=== PATIENT | male | born 1955 | race African-American/Black ===

== ENCOUNTER 2023-06-21 20:42 | Inpatient (IN) | payer OTHER ==
[2023-06-21] MEDS ORDERED: FUROSEMIDE 40 MG/4 ML INJECTABLE VIAL IVPUSH ONE (21:15)
[2023-06-21 21:49] LABS: BASO % 0.7 % (0-2.0); EOS % 0.2 % (0-4.5); HEMATOCRIT 32.9 % (35.4-49); HEMOGLOBIN 10.1 GM/dL (11.7-16.9); MCH 26.9 pg (25.7-33.7); MCHC 30.6 g/dl (32.0-35.9); MEAN CELL VOLUME 87.8 fl (80-96); MEAN PLT VOLUME 7.2 fl (7.5-11.1); MONO % 4.2 % (3.8-10.2); NEUT % 87.9 % (42.8-82.8); PLATELET COUNT 302 10^3/uL (134-434); RBC 3.74 M/mm3 (4.00-5.60); RDW 19.5 % (11.9-15.9); WHITE BLOOD COUNT 11.5 K/mm3 (4.0-10.0)
[2023-06-21] MEDS ORDERED: FUROSEMIDE 40 MG/4 ML INJECTABLE VIAL ONE (21:49)
[2023-06-21 21:50] LABS: VENOUS BASE EXCESS -3.5 mmol/L (-2-2); VENOUS O2 SATURATION 29.9 % (70-80)
[2023-06-21 21:53] LABS: VENOUS PCO2 88.8 mmHg (38-52); VENOUS PH 7.11 (7.310-7.410)
[2023-06-21 21:56] LABS: INR 1.71 (0.83-1.09); PROTHROMBIN TIME (PATIENT) 19.7 SEC (9.7-13.0)
[2023-06-21 21:58] LABS: ACTIVATED PTT 32.9 SECONDS (25.2-36.5)
[2023-06-21 22:03] LABS: ARTERIAL BLD GAS O2 SATURATION 90.7 % (95-98); ARTERIAL BLOOD GAS BASE EXCESS -4.3 mmol/L (-2-2)
[2023-06-21 22:09] LABS: ALLENS TEST POSITIVE
[2023-06-21 22:10] LABS: CHLORIDE 103 mmol/L (98-107); POTASSIUM 5.2 mmol/L (3.5-5.1); SODIUM 137 mmol/L (136-145)
[2023-06-21 22:12] LABS: ANION GAP 6 mmol/L (4-13); BLOOD UREA NITROGEN 64.4 mg/dL (7-18); CALCIUM 8.5 mg/dL (8.5-10.1); CO2 28 mmol/L (21-32); GLUCOSE,RANDOM 120 mg/dL (74-106)
[2023-06-21 22:13] LABS: ALBUMIN 2.4 g/dl (3.4-5.0)
[2023-06-21 22:15] LABS: ARTERIAL BLOOD GAS pH 7.173 (7.350-7.450)
[2023-06-21 22:17] LABS: BILIRUBIN,TOTAL 0.4 mg/dL (0.2-1); TOT PROT 8.2 g/dl (6.4-8.2)
[2023-06-21 22:18] LABS: ALK PHOS 150 U/L (45-117)
[2023-06-21 23:11] LABS: SGOT/AST 2235 U/L (15-37); SGPT/ALT 1715 U/L (13-61)
[2023-06-22 00:21] LABS: ARTERIAL BLD GAS O2 SATURATION 92.9 % (95-98); ARTERIAL BLOOD GAS BASE EXCESS -3.1 mmol/L (-2-2); ARTERIAL BLOOD GAS PO2 81.2 mmHg (80-100)
[2023-06-22 00:23] LABS: ARTERIAL BLOOD GAS pH 7.196 (7.350-7.450)
[2023-06-22 00:25] LABS: ALLENS TEST POSITIVE
[2023-06-22] MEDS ORDERED: FUROSEMIDE 40 MG/4 ML INJECTABLE VIAL IVPUSH ONE ×2 (02:58→18:09)
[2023-06-22] MEDS: MUPIROCIN 2% TOPICAL OINTMENT FOR DECOLONIZATION NS SCH ×3 (03:28→22:42)
[2023-06-22] MEDS ORDERED: CEFTRIAXONE 1 GM in DEXTROSE 5%-WATER - 50 ML IVPB ONE (06:07)
[2023-06-22 06:24] LABS: ARTERIAL BLD GAS O2 SATURATION 97.4 % (95-98); ARTERIAL BLOOD GAS BASE EXCESS -2.8 mmol/L (-2-2); ARTERIAL BLOOD GAS PO2 117.6 mmHg (80-100); ARTERIAL BLOOD GAS pH 7.221 (7.350-7.450)
[2023-06-22 06:25] LABS: VENT MODE S/T; VENT RATE 18
[2023-06-22 08:06] LABS: BASO % 0.7 % (0-2.0); EOS % 0.3 % (0-4.5); HEMATOCRIT 31.8 % (35.4-49); HEMOGLOBIN 9.7 GM/dL (11.7-16.9); LYMPH % 13.3 % (8-40); MCH 26.5 pg (25.7-33.7); MCHC 30.5 g/dl (32.0-35.9); MEAN CELL VOLUME 86.9 fl (80-96); MEAN PLT VOLUME 7.8 fl (7.5-11.1); MONO % 6.6 % (3.8-10.2); NEUT % 79.1 % (42.8-82.8); PLATELET COUNT 256 10^3/uL (134-434); RBC 3.66 M/mm3 (4.00-5.60); RDW 19.6 % (11.9-15.9); WHITE BLOOD COUNT 10.3 K/mm3 (4.0-10.0)
[2023-06-22 08:08] LABS: POTASSIUM 5.9 mmol/L (3.5-5.1)
[2023-06-22 08:11] LABS: ALBUMIN 2.1 g/dl (3.4-5.0); CALCIUM 8.4 mg/dL (8.5-10.1)
[2023-06-22 08:12] LABS: BLOOD UREA NITROGEN 68.8 mg/dL (7-18); MAGNESIUM 2.7 mg/dL (1.8-2.4)
[2023-06-22 08:14] LABS: CREATININE 5.3 mg/dL (0.55-1.3)
[2023-06-22 08:16] LABS: BILIRUBIN,TOTAL 0.4 mg/dL (0.2-1); TOT PROT 7.4 g/dl (6.4-8.2)
[2023-06-22] MEDS ORDERED: ASPIRIN 325 MG TABLET PO SCH (10:00)
[2023-06-22] MEDS: OXYBUTYNIN CHLORIDE 5 MG TABLET PO SCH (10:29)
[2023-06-22] MEDS: CEFTRIAXONE 1 GM in DEXTROSE 5%-WATER - 50 ML IVPB SCH (10:30)
[2023-06-22] MEDS: HEPARIN NA (PORCINE) 5,000 UNITS/ML 1ML VIAL SQ SCH ×2 (10:32→22:42)
[2023-06-22] MEDS ORDERED: DEXTROSE 50%-WATER 25 GM/50 ML DISP.SYRIN IVPUSH ONE (13:46)
[2023-06-22] MEDS ORDERED: FUROSEMIDE 40 MG/4 ML INJECTABLE VIAL IVPUSH SCH (14:00)
[2023-06-22 14:40] LABS: EPI CELLS 2 /uL (0-25.1); HYALINE CASTS 1 /uL (0-3.1); URINE APPEARANCE TURBID; URINE BACTERIA 55 /uL (0-1359); URINE BILIRUBIN NEGATIVE (NEGATIVE); URINE COLOR DK YELLOW; URINE GLUCOSE (UA) NEGATIVE (NEGATIVE); URINE KETONE TRACE (NEGATIVE); URINE LEUK ESTERASE 2+ (NEGATIVE); URINE NITRITE NEGATIVE (NEGATIVE); URINE PROTEIN 3+ (NEGATIVE); URINE WBC 138 /uL (0-25.8)
[2023-06-22] MEDS: FUROSEMIDE 40 MG/4 ML INJECTABLE VIAL IVPUSH SCH (14:51)
[2023-06-22 14:59] LABS: URINE RBC 565.3 /uL (0-23.9); YEAST NONE SEEN (NEGATIVE)
[2023-06-22] MEDS: SODIUM ZIRCONIUM CYCLOSILICATE (LOKELMA) 5 GM PACKET PO SCH ×2 (20:18→22:43)
[2023-06-22] MEDS: CHLORHEXIDINE GLUCONATE 4% CLEANSER FOR DECOLONIZATION TP SCH (22:43)
[2023-06-23] MEDS: OXYBUTYNIN CHLORIDE 5 MG TABLET PO SCH ×3 (03:22→21:56)
[2023-06-23] MEDS: FUROSEMIDE 40 MG/4 ML INJECTABLE VIAL IVPUSH SCH ×2 (05:20→14:57)
[2023-06-23 07:36] LABS: BASO % 0.5 % (0-2.0); EOS % 0.7 % (0-4.5); HEMATOCRIT 31.7 % (35.4-49); HEMOGLOBIN 9.9 GM/dL (11.7-16.9); LYMPH % 9.4 % (8-40); MCH 26.8 pg (25.7-33.7); MCHC 31.3 g/dl (32.0-35.9); MEAN CELL VOLUME 85.7 fl (80-96); MEAN PLT VOLUME 7.8 fl (7.5-11.1); MONO % 4.4 % (3.8-10.2); PLATELET COUNT 307 10^3/uL (134-434); RDW 19.6 % (11.9-15.9); WHITE BLOOD COUNT 10.6 K/mm3 (4.0-10.0)
[2023-06-23 07:52] LABS: POTASSIUM 5.8 mmol/L (3.5-5.1)
[2023-06-23 08:30] LABS: ALBUMIN 2.2 g/dl (3.4-5.0); CALCIUM 8.6 mg/dL (8.5-10.1)
[2023-06-23 08:31] LABS: MAGNESIUM 2.8 mg/dL (1.8-2.4)
[2023-06-23 08:33] LABS: PHOSPHOROUS 6.5 mg/dL (2.5-4.9)
[2023-06-23 08:34] LABS: TOT PROT 7.5 g/dl (6.4-8.2)
[2023-06-23 08:35] LABS: BILIRUBIN,TOTAL 0.3 mg/dL (0.2-1)
[2023-06-23] MEDS ORDERED: SODIUM ZIRCONIUM CYCLOSILICATE (LOKELMA) 5 GM PACKET PO ONE (09:10)
[2023-06-23] MEDS: HEPARIN NA (PORCINE) 5,000 UNITS/ML 1ML VIAL SQ SCH ×2 (09:42→21:26)
[2023-06-23] MEDS: PANTOPRAZOLE 40 MG TABLET PO SCH (09:42)
[2023-06-23] MEDS: CEFTRIAXONE 1 GM in DEXTROSE 5%-WATER - 50 ML IVPB SCH (09:43)
[2023-06-23] MEDS: MUPIROCIN 2% TOPICAL OINTMENT FOR DECOLONIZATION NS SCH ×2 (09:49→21:27)
[2023-06-23 10:01] LABS: INR 1.46 (0.83-1.09); PROTHROMBIN TIME (PATIENT) 16.9 SEC (9.7-13.0)
[2023-06-23] MEDS ORDERED: PHENAZOPYRIDINE HCL 100 MG TABLET (FP) PO ONE (11:00)
[2023-06-23] MEDS ORDERED: MIDAZOLAM HCL 2 MG/2 ML SINGLE DOSE VIAL IVPUSH ONE (11:38)
[2023-06-23] MEDS ORDERED: FENTANYL CITRATE/PF 50 MCG/ML VIAL IVPUSH ONE (11:38)
[2023-06-23] MEDS ORDERED: MIDAZOLAM HCL 2 MG/2 ML SINGLE DOSE VIAL ONE (11:43)
[2023-06-23] MEDS ORDERED: HEPARIN NA (PORCINE) 5,000 UNITS/ML 1ML VIAL IVPUSH ONE (17:00)
[2023-06-23] MEDS: ALBUMIN HUMAN 25% 12.5 GM/50 ML VIAL IV SCH ×3 (17:36→18:18)
[2023-06-23] MEDS: CHLORHEXIDINE GLUCONATE 4% CLEANSER FOR DECOLONIZATION TP SCH (21:27)
[2023-06-24] MEDS: FUROSEMIDE 40 MG/4 ML INJECTABLE VIAL IVPUSH SCH ×2 (05:06→16:06)
[2023-06-24 07:33] LABS: HEMATOCRIT 29.5 % (35.4-49); MCH 26.2 pg (25.7-33.7); MCHC 30.3 g/dl (32.0-35.9); MEAN CELL VOLUME 86.4 fl (80-96); MEAN PLT VOLUME 7.8 fl (7.5-11.1); PLATELET COUNT 257 10^3/uL (134-434); RBC 3.42 M/mm3 (4.00-5.60); RDW 19.3 % (11.9-15.9)
[2023-06-24 07:34] LABS: WHITE BLOOD COUNT 8.9 K/mm3 (4.0-10.0)
[2023-06-24 07:46] LABS: CALCIUM 8.2 mg/dL (8.5-10.1)
[2023-06-24 07:47] LABS: ALBUMIN 2.2 g/dl (3.4-5.0); BLOOD UREA NITROGEN 69.9 mg/dL (7-18); MAGNESIUM 2.6 mg/dL (1.8-2.4)
[2023-06-24 07:49] LABS: CREATININE 5.5 mg/dL (0.55-1.3)
[2023-06-24 07:51] LABS: BILIRUBIN,TOTAL 0.4 mg/dL (0.2-1)
[2023-06-24 09:04] LABS: ANISOCYTOSIS 0; MACROCYTOSIS 0
[2023-06-24 09:21] LABS: PLATELET ESTIMATE ADEQUATE
[2023-06-24] MEDS: OXYBUTYNIN CHLORIDE 5 MG TABLET PO SCH ×2 (09:52→23:16)
[2023-06-24] MEDS: CEFTRIAXONE 1 GM in DEXTROSE 5%-WATER - 50 ML IVPB SCH (09:52)
[2023-06-24] MEDS: HEPARIN NA (PORCINE) 5,000 UNITS/ML 1ML VIAL SQ SCH ×2 (09:53→23:15)
[2023-06-24] MEDS: PANTOPRAZOLE 40 MG TABLET PO SCH (09:53)
[2023-06-24] MEDS: MUPIROCIN 2% TOPICAL OINTMENT FOR DECOLONIZATION NS SCH (09:54)
[2023-06-24] MEDS ORDERED: HEPARIN NA (PORCINE) 5,000 UNITS/ML 1ML VIAL IVPUSH ONE (10:38)
[2023-06-24] MEDS ORDERED: SODIUM CHLORIDE 250 ML IV PRN ×3 (10:38→19:51)
[2023-06-24] MEDS: ALBUMIN HUMAN 25% 12.5 GM/50 ML VIAL IV SCH ×4 (11:50→13:30)
[2023-06-24 21:42] LABS: ANTIGLOMERULAR BASEMENT MEN.AB <0.2 units (0.0-0.9)
[2023-06-24] MEDS ORDERED: CHLORHEXIDINE GLUCONATE 4% CLEANSER FOR DECOLONIZATION TP SCH (22:00)
[2023-06-24] MEDS ORDERED: MUPIROCIN 2% TOPICAL OINTMENT FOR DECOLONIZATION NS SCH (22:00)
[2023-06-24] MEDS ORDERED: ACETAMINOPHEN 325 MG TABLET (FP) PO ONE (22:41)
[2023-06-25] MEDS: FUROSEMIDE 40 MG/4 ML INJECTABLE VIAL IVPUSH SCH ×2 (05:24→17:39)
[2023-06-25 07:23] LABS: BASO % 0.9 % (0-2.0); EOS % 2.1 % (0-4.5); HEMATOCRIT 29.9 % (35.4-49); HEMOGLOBIN 9.2 GM/dL (11.7-16.9); LYMPH % 13.7 % (8-40); MCH 26.7 pg (25.7-33.7); MCHC 30.6 g/dl (32.0-35.9); MEAN CELL VOLUME 87.3 fl (80-96); MEAN PLT VOLUME 7.9 fl (7.5-11.1); MONO % 8.3 % (3.8-10.2); PLATELET COUNT 256 10^3/uL (134-434); RBC 3.43 M/mm3 (4.00-5.60); RDW 19.4 % (11.9-15.9); WHITE BLOOD COUNT 7.1 K/mm3 (4.0-10.0)
[2023-06-25 07:27] LABS: POTASSIUM 4.8 mmol/L (3.5-5.1)
[2023-06-25 07:42] LABS: CALCIUM 8.3 mg/dL (8.5-10.1)
[2023-06-25 07:43] LABS: ALBUMIN 2.4 g/dl (3.4-5.0); MAGNESIUM 2.5 mg/dL (1.8-2.4)
[2023-06-25 07:46] LABS: CREATININE 4.6 mg/dL (0.55-1.3); PHOSPHOROUS 5.7 mg/dL (2.5-4.9)
[2023-06-25 07:47] LABS: TOT PROT 7.7 g/dl (6.4-8.2)
[2023-06-25 07:48] LABS: BILIRUBIN,TOTAL 0.3 mg/dL (0.2-1)
[2023-06-25] MEDS ORDERED: ACETAMINOPHEN 325 MG TABLET (FP) PO PRN (08:23)
[2023-06-25] MEDS: HEPARIN NA (PORCINE) 5,000 UNITS/ML 1ML VIAL SQ SCH ×2 (09:32→22:24)
[2023-06-25] MEDS ORDERED: SODIUM CHLORIDE 250 ML IV PRN (09:32)
[2023-06-25] MEDS: PANTOPRAZOLE 40 MG TABLET PO SCH (09:32)
[2023-06-25] MEDS: OXYBUTYNIN CHLORIDE 5 MG TABLET PO SCH (09:33)
[2023-06-25] MEDS: FINASTERIDE 5 MG TABLET (FP) PO SCH (09:55)
[2023-06-25] MEDS: TAMSULOSIN HCL 0.4 MG CAP PO SCH (09:55)
[2023-06-25] MEDS ORDERED: HEPARIN NA (PORCINE) 5,000 UNITS/ML 1ML VIAL IVPUSH ONE (10:00)
[2023-06-25] MEDS ORDERED: ACETAMINOPHEN 1000 MG/100 ML BAG IVPB ONE (10:15)
[2023-06-25] MEDS ORDERED: ALBUMIN HUMAN 25% 12.5 GM/50 ML VIAL IV SCH (10:30)
[2023-06-25] MEDS ORDERED: LIDOCAINE HCL 2% JELLY (30 ML/TUBE) TP ONE (10:30)
[2023-06-25] MEDS ORDERED: LIDOCAINE HCL 2% JELLY 6 ML TP ONE (10:30)
[2023-06-25] MEDS: ALBUMIN HUMAN 25% 12.5 GM/50 ML VIAL IV SCH (12:03)
[2023-06-25] MEDS ORDERED: EPOETIN ALFA-EPBX 4,000 UNIT/ML VIAL IVPUSH ONE (14:15)
[2023-06-25 18:29] LABS: EPI CELLS 16 /uL (0-25.1); HYALINE CASTS 4 /uL (0-3.1); URINE APPEARANCE TURBID; URINE BACTERIA 22 /uL (0-1359); URINE BILIRUBIN 1+ (NEGATIVE); URINE COLOR DK YELLOW; URINE GLUCOSE (UA) NEGATIVE (NEGATIVE); URINE KETONE TRACE (NEGATIVE); URINE LEUK ESTERASE 2+ (NEGATIVE); URINE NITRITE NEGATIVE (NEGATIVE); URINE PROTEIN 2+ (NEGATIVE); URINE RBC 102 /uL (0-23.9); URINE WBC 391 /uL (0-25.8)
[2023-06-25 19:43] LABS: URINE CRYSTALS FEW /hpf
[2023-06-26] MEDS: FUROSEMIDE 40 MG/4 ML INJECTABLE VIAL IVPUSH SCH ×2 (06:30→14:12)
[2023-06-26] MEDS: HEPARIN NA (PORCINE) 5,000 UNITS/ML 1ML VIAL SQ SCH ×3 (06:30→22:01)
[2023-06-26 07:05] LABS: BASO % 1.1 % (0-2.0); EOS % 2.1 % (0-4.5); HEMATOCRIT 30.4 % (35.4-49); HEMOGLOBIN 9.3 GM/dL (11.7-16.9); LYMPH % 12.1 % (8-40); MCH 26.7 pg (25.7-33.7); MCHC 30.7 g/dl (32.0-35.9); MEAN CELL VOLUME 86.9 fl (80-96); MEAN PLT VOLUME 7.6 fl (7.5-11.1); MONO % 7.5 % (3.8-10.2); NEUT % 77.2 % (42.8-82.8); PLATELET COUNT 234 10^3/uL (134-434); RDW 19.7 % (11.9-15.9); WHITE BLOOD COUNT 7.2 K/mm3 (4.0-10.0)
[2023-06-26 07:21] LABS: POTASSIUM 4.4 mmol/L (3.5-5.1)
[2023-06-26 07:26] LABS: CALCIUM 8.4 mg/dL (8.5-10.1)
[2023-06-26 07:27] LABS: ALBUMIN 2.3 g/dl (3.4-5.0); MAGNESIUM 2.1 mg/dL (1.8-2.4)
[2023-06-26 07:30] LABS: CREATININE 3.4 mg/dL (0.55-1.3); PHOSPHOROUS 4.3 mg/dL (2.5-4.9)
[2023-06-26 07:31] LABS: TOT PROT 7.5 g/dl (6.4-8.2)
[2023-06-26 07:38] LABS: BILIRUBIN,TOTAL 0.4 mg/dL (0.2-1)
[2023-06-26] MEDS: TAMSULOSIN HCL 0.4 MG CAP PO SCH (09:13)
[2023-06-26] MEDS: FINASTERIDE 5 MG TABLET (FP) PO SCH (09:13)
[2023-06-26] MEDS: PANTOPRAZOLE 40 MG TABLET PO SCH (09:14)
[2023-06-26] MEDS ORDERED: SODIUM CHLORIDE 250 ML IV PRN (12:49)
[2023-06-26] MEDS: FERROUS SO4 325 MG TABLET (FP) PO SCH (16:54)
[2023-06-27] MEDS: FUROSEMIDE 40 MG/4 ML INJECTABLE VIAL IVPUSH SCH ×2 (05:38→13:44)
[2023-06-27] MEDS: HEPARIN NA (PORCINE) 5,000 UNITS/ML 1ML VIAL SQ SCH ×3 (05:40→21:34)
[2023-06-27 07:24] LABS: BASO % 1.2 % (0-2.0); EOS % 2.2 % (0-4.5); HEMATOCRIT 30.7 % (35.4-49); HEMOGLOBIN 9.4 GM/dL (11.7-16.9); LYMPH % 13.6 % (8-40); MCH 26.4 pg (25.7-33.7); MCHC 30.7 g/dl (32.0-35.9); MEAN PLT VOLUME 7.7 fl (7.5-11.1); MONO % 8.3 % (3.8-10.2); NEUT % 74.7 % (42.8-82.8); PLATELET COUNT 239 10^3/uL (134-434); RBC 3.57 M/mm3 (4.00-5.60); RDW 19.4 % (11.9-15.9); WHITE BLOOD COUNT 7.2 K/mm3 (4.0-10.0)
[2023-06-27 07:30] LABS: POTASSIUM 4.1 mmol/L (3.5-5.1)
[2023-06-27 07:31] LABS: POTASSIUM 4.1 mmol/L (3.5-5.1)
[2023-06-27 07:32] LABS: BLOOD UREA NITROGEN 41.6 mg/dL (7-18); CALCIUM 8.8 mg/dL (8.5-10.1)
[2023-06-27 07:33] LABS: ALBUMIN 2.3 g/dl (3.4-5.0)
[2023-06-27 07:35] LABS: BILIRUBIN,DIRECT 0.2 mg/dL (0.0-0.2)
[2023-06-27 07:36] LABS: ALBUMIN 2.4 g/dl (3.4-5.0); CALCIUM 8.8 mg/dL (8.5-10.1); CREATININE 3.4 mg/dL (0.55-1.3)
[2023-06-27 07:37] LABS: MAGNESIUM 1.9 mg/dL (1.8-2.4); TOT PROT 7.7 g/dl (6.4-8.2)
[2023-06-27 07:40] LABS: CREATININE 3.3 mg/dL (0.55-1.3); PHOSPHOROUS 4.5 mg/dL (2.5-4.9)
[2023-06-27 07:41] LABS: TOT PROT 7.8 g/dl (6.4-8.2)
[2023-06-27 07:46] LABS: BILIRUBIN,TOTAL 0.3 mg/dL (0.2-1)
[2023-06-27 07:54] LABS: BILIRUBIN,TOTAL 0.4 mg/dL (0.2-1)
[2023-06-27] MEDS: TAMSULOSIN HCL 0.4 MG CAP PO SCH (09:39)
[2023-06-27] MEDS: FERROUS SO4 325 MG TABLET (FP) PO SCH (09:39)
[2023-06-27] MEDS: PANTOPRAZOLE 40 MG TABLET PO SCH (09:39)
[2023-06-27] MEDS: FINASTERIDE 5 MG TABLET (FP) PO SCH (09:39)
[2023-06-27 10:12] LABS: RETICULOCYTES 2.61 % (0.5-1.5)
[2023-06-27] MEDS ORDERED: EPOETIN ALFA-EPBX 4,000 UNIT/ML VIAL SQ ONE (12:49)
[2023-06-27] MEDS ORDERED: ALBUMIN HUMAN 25% 12.5 GM/50 ML VIAL IVPB SCH (13:00)
[2023-06-28] MEDS: HEPARIN NA (PORCINE) 5,000 UNITS/ML 1ML VIAL SQ SCH ×3 (05:21→21:54)
[2023-06-28] MEDS: FUROSEMIDE 40 MG/4 ML INJECTABLE VIAL IVPUSH SCH ×2 (05:21→15:17)
[2023-06-28 07:33] LABS: POTASSIUM 4.2 mmol/L (3.5-5.1)
[2023-06-28 07:39] LABS: ALBUMIN 2.3 g/dl (3.4-5.0); BLOOD UREA NITROGEN 45.4 mg/dL (7-18); CALCIUM 8.8 mg/dL (8.5-10.1)
[2023-06-28 07:42] LABS: CREATININE 2.7 mg/dL (0.55-1.3); PHOSPHOROUS 3.8 mg/dL (2.5-4.9)
[2023-06-28 07:43] LABS: BILIRUBIN,TOTAL 0.5 mg/dL (0.2-1); TOT PROT 7.5 g/dl (6.4-8.2)
[2023-06-28] MEDS: FERROUS SO4 325 MG TABLET (FP) PO SCH (09:32)
[2023-06-28] MEDS: PANTOPRAZOLE 40 MG TABLET PO SCH (09:32)
[2023-06-28] MEDS: FINASTERIDE 5 MG TABLET (FP) PO SCH (09:32)
[2023-06-28] MEDS: TAMSULOSIN HCL 0.4 MG CAP PO SCH (09:32)
[2023-06-28 16:11] LABS: ATYPICAL pANCA <1:20 titer (Neg:<1:20); C-ANCA <1:20 titer (Neg:<1:20)
[2023-06-28 16:19] VITALS: BMI 51.2
[2023-06-29] MEDS: HEPARIN NA (PORCINE) 5,000 UNITS/ML 1ML VIAL SQ SCH ×3 (06:34→21:46)
[2023-06-29] MEDS: FUROSEMIDE 40 MG/4 ML INJECTABLE VIAL IVPUSH SCH ×2 (06:35→13:16)
[2023-06-29 08:17] LABS: HEMATOCRIT 31.8 % (35.4-49); HEMOGLOBIN 9.6 GM/dL (11.7-16.9); MCH 25.8 pg (25.7-33.7); MCHC 30.3 g/dl (32.0-35.9); MEAN CELL VOLUME 85.1 fl (80-96); MEAN PLT VOLUME 7.9 fl (7.5-11.1); PLATELET COUNT 271 10^3/uL (134-434); RBC 3.74 M/mm3 (4.00-5.60); RDW 19.5 % (11.9-15.9); WHITE BLOOD COUNT 6.9 K/mm3 (4.0-10.0)
[2023-06-29] MEDS: TAMSULOSIN HCL 0.4 MG CAP PO SCH (08:22)
[2023-06-29 08:43] LABS: POTASSIUM 3.9 mmol/L (3.5-5.1)
[2023-06-29 08:48] LABS: CALCIUM 8.9 mg/dL (8.5-10.1)
[2023-06-29 08:52] LABS: ALBUMIN 2.2 g/dl (3.4-5.0); BLOOD UREA NITROGEN 44.1 mg/dL (7-18); MAGNESIUM 1.5 mg/dL (1.8-2.4)
[2023-06-29 08:55] LABS: CREATININE 2.2 mg/dL (0.55-1.3); PHOSPHOROUS 3.4 mg/dL (2.5-4.9)
[2023-06-29 08:57] LABS: BILIRUBIN,TOTAL 0.5 mg/dL (0.2-1); TOT PROT 7.5 g/dl (6.4-8.2)
[2023-06-29] MEDS: FINASTERIDE 5 MG TABLET (FP) PO SCH (10:14)
[2023-06-29] MEDS: FERROUS SO4 325 MG TABLET (FP) PO SCH (10:14)
[2023-06-29] MEDS: PANTOPRAZOLE 40 MG TABLET PO SCH (10:14)
[2023-06-29] MEDS ORDERED: MAGNESIUM SULF 50% (8.12 MEQ/2 ML-1 GM VIAL) IVPB ONE (13:00)
[2023-06-29] MEDS ORDERED: MAGNESIUM 2GM/50ML STERILE WATER IVPB IVPB ONE (16:01)
[2023-06-29] MEDS: CARVEDILOL 6.25 MG TABLET (FP) PO SCH ×2 (17:13→21:46)
[2023-06-30] MEDS: HEPARIN NA (PORCINE) 5,000 UNITS/ML 1ML VIAL SQ SCH ×3 (05:09→21:02)
[2023-06-30] MEDS: FUROSEMIDE 40 MG/4 ML INJECTABLE VIAL IVPUSH SCH ×2 (05:09→14:12)
[2023-06-30 07:20] LABS: HEMATOCRIT 32.8 % (35.4-49); MCHC 30.5 g/dl (32.0-35.9); MEAN CELL VOLUME 85.3 fl (80-96); MEAN PLT VOLUME 8.1 fl (7.5-11.1); PLATELET COUNT 294 10^3/uL (134-434); RBC 3.85 M/mm3 (4.00-5.60); RDW 19.2 % (11.9-15.9); WHITE BLOOD COUNT 7.3 K/mm3 (4.0-10.0)
[2023-06-30 07:40] LABS: POTASSIUM 3.8 mmol/L (3.5-5.1)
[2023-06-30 08:26] LABS: ALBUMIN 2.4 g/dl (3.4-5.0); BLOOD UREA NITROGEN 40.4 mg/dL (7-18)
[2023-06-30 08:32] LABS: TOT PROT 7.7 g/dl (6.4-8.2)
[2023-06-30 08:34] LABS: BILIRUBIN,TOTAL 0.4 mg/dL (0.2-1)
[2023-06-30] MEDS: TAMSULOSIN HCL 0.4 MG CAP PO SCH (08:57)
[2023-06-30] MEDS: FINASTERIDE 5 MG TABLET (FP) PO SCH (09:43)
[2023-06-30] MEDS: CARVEDILOL 6.25 MG TABLET (FP) PO SCH ×2 (09:43→21:02)
[2023-06-30] MEDS: PANTOPRAZOLE 40 MG TABLET PO SCH (09:43)
[2023-06-30] MEDS: FERROUS SO4 325 MG TABLET (FP) PO SCH (09:43)
[2023-06-30] MEDS ORDERED: amLODIPine BESYLATE 5 MG TABLET (FP) PO SCH (10:00)
[2023-06-30 18:38] VITALS: RESP 18
[2023-07-01] MEDS: HEPARIN NA (PORCINE) 5,000 UNITS/ML 1ML VIAL SQ SCH (06:02)
[2023-07-01] MEDS: FUROSEMIDE 40 MG TABLET (FP) PO SCH ×2 (06:03→07:23)
[2023-07-01 08:46] VITALS: BP 158/83; PULSE 95; TEMP 98.9
[2023-07-01] MEDS: TAMSULOSIN HCL 0.4 MG CAP PO SCH (09:24)
[2023-07-01] MEDS: PANTOPRAZOLE 40 MG TABLET PO SCH (09:24)
[2023-07-01] MEDS: FINASTERIDE 5 MG TABLET (FP) PO SCH (09:24)
[2023-07-01] MEDS: FERROUS SO4 325 MG TABLET (FP) PO SCH (09:24)
[2023-07-01] MEDS: CARVEDILOL 6.25 MG TABLET (FP) PO SCH (09:24)
[2023-07-01] MEDS ORDERED: MAGNESIUM SULF 50% (8.12 MEQ/2 ML-1 GM VIAL) IVPB ONE (09:30)
== END 2023-07-01 11:14 | DRG 682 ==
LOC: JER 20:42 → JERBED 06-22 00:30 → JICU 06-22 01:59 → J4W 06-24 17:22
PROVIDERS: ADMIT Internal Medicine; ATTEND Internal Medicine
PROC: 05HM33Z Insertion of Infusion Device into Right Internal Jugular Vein, Percutaneous Approach (ICD-10-PCS; principal; 2023-06-23)
PROC: B543ZZA Ultrasonography of Right Jugular Veins, Guidance (ICD-10-PCS; 2023-06-23)
DX: N17.9 Acute kidney failure, unspecified (principal); I21.A1 Myocardial infarction type 2; I50.31 Acute diastolic (congestive) heart failure; J96.01 Acute respiratory failure with hypoxia; J96.02 Acute respiratory failure with hypercapnia; E87.20 Acidosis, unspecified; Z68.43 Body mass index [BMI] 50.0-59.9, adult; R18.8 Other ascites; E87.29 Other acidosis; I11.0 Hypertensive heart disease with heart failure; F17.210 Nicotine dependence, cigarettes, uncomplicated; R74.01 Elevation of levels of liver transaminase levels; N40.1 Benign prostatic hyperplasia with lower urinary tract symptoms; R33.9 Retention of urine, unspecified; E87.5 Hyperkalemia; D50.9 Iron deficiency anemia, unspecified; E66.01 Morbid (severe) obesity due to excess calories; N28.1 Cyst of kidney, acquired; R31.9 Hematuria, unspecified; E87.70 Fluid overload, unspecified
CPT/HCPCS: 0241U-QW; 36415; 36600; 70450-TC; 71045-TC-FY; 76700-TC; 80048; 80053; 80076; 80307; 81003; 82550; 82570; 82728; 82803; 82962; 82977; 83516; 83520; 83540; 83550; 83735; 83880; 83935; 84100; 84155; 84165; 84300; 84443; 84484; 85025; 85027; 85045; 85610; 85730; 86038; 86140; 86256; 86704; 86803; 87040; 87086; 87340; 87491; 87517; 87591; 87635; 93005; 93010; 93306-TC; 94660; 97116-GP; 97163-GP; 99291; 99292; J1644; P9047; Q5106

== ENCOUNTER → 2023-07-04 | Emergency (ER) | payer OTHER ==
[~2023-07-04] MED LIST: EPINEPHrine 1:10,000 (P-F SYR) 1 MG/10 ML DISP.SYRIN ONE; SODIUM CHLORIDE 0.9% 500 ML INFUS.BAG IV ONE
[2023-07-04 01:28] VITALS: BP 129/85; TEMP 0; BMI 51.2
[2023-07-04 01:32] VITALS: PULSE 50
[2023-07-04 02:02] LABS: VENOUS BASE EXCESS -5.8 mmol/L (-2-2); VENOUS O2 SATURATION 19.8 % (70-80)
[2023-07-04 02:04] LABS: VENOUS PH 7.062 (7.310-7.410)
[2023-07-04 02:05] LABS: VENOUS PCO2 91.7 mmHg (38-52)
[2023-07-04 02:17] LABS: POTASSIUM 5.8 mmol/L (3.5-5.1)
[2023-07-04 02:20] LABS: ALBUMIN 2.1 g/dl (3.4-5.0); BLOOD UREA NITROGEN 46.3 mg/dL (7-18)
[2023-07-04 02:23] LABS: CREATININE 2.8 mg/dL (0.55-1.3)
[2023-07-04 02:24] LABS: TOT PROT 7.9 g/dl (6.4-8.2)
[2023-07-04 02:25] LABS: BILIRUBIN,TOTAL 0.8 mg/dL (0.2-1)
[2023-07-04 02:39] LABS: INR 1.27 (0.83-1.09); PROTHROMBIN TIME (PATIENT) 14.7 SEC (9.7-13.0)
[2023-07-04 02:41] LABS: BASO % 1.1 % (0-2.0); HEMATOCRIT 33.9 % (35.4-49); HEMOGLOBIN 9.5 GM/dL (11.7-16.9); LYMPH % 20.8 % (8-40); MCH 25.7 pg (25.7-33.7); MCHC 28.1 g/dl (32.0-35.9); MEAN CELL VOLUME 91.7 fl (80-96); MEAN PLT VOLUME 9.3 fl (7.5-11.1); MONO % 2.3 % (3.8-10.2); NEUT % 74.8 % (42.8-82.8); PLATELET COUNT 163 10^3/uL (134-434); RDW 20.5 % (11.9-15.9); WHITE BLOOD COUNT 12.5 K/mm3 (4.0-10.0)
[2023-07-04 02:42] LABS: ACTIVATED PTT 40.6 SECONDS (25.2-36.5)
[2023-07-04 02:46] LABS: CALCIUM 10.5 mg/dL (8.5-10.1)
== END | disposition expired ==
LOC: JER 01:08
PROC: 0BH17EZ Insertion of Endotracheal Airway into Trachea, Via Natural or Artificial Opening (ICD-10-PCS; principal; 2023-07-04)
PROC: 05HN33Z Insertion of Infusion Device into Left Internal Jugular Vein, Percutaneous Approach (ICD-10-PCS; 2023-07-04)
DX: I46.9 Cardiac arrest, cause unspecified (principal); J96.00 Acute respiratory failure, unspecified whether with hypoxia or hypercapnia
CPT/HCPCS: 0241U-QW; 36415; 80053; 82550; 82553; 82803; 83605; 84484; 85025; 85610; 85730; 99291